=== PATIENT | female | born 1980 ===

== ENCOUNTER 2021-03-11 07:54 | Emergency (ER) | payer OTHER ==
[~2021-03-11] VITALS: Ht 162.6 cm; Wt 68.0 kg
[2021-03-11 08:05] VITALS: BP 136/67
== END 2021-03-11 08:56 ==
LOC: EMS 07:56
DX: Z11.1 Encounter for screening for respiratory tuberculosis (principal); Z90.89 Acquired absence of other organs
CPT/HCPCS: 71045; 99283